=== PATIENT | female | born 1970 | race African-American/Black ===

== ENCOUNTER → 2019-08-02 | Day surgery (SDC) | payer OTHER ==
--- NOTE | 2019-08-03 16:00 | PATH ---
Cytology Non-Gynecological Report Patient Name: ARNIE STOCKTON [facility]. Rec. #: [id number] /Age/Gender: 1970 (Age: 48) / F Account: [id number] Location: RADIOLOGY INTER Taken: 08/02/2019 Received: 08/02/2019 Reported: 08/03/2019 Physicians: Ramy Mendoza M.D. Specimen(s) Received RIGHT THYROID FNA Clinical History Right lobe, 2.23 x 2.61 x 1.91 cm Final Diagnosis THYROID, RIGHT LOBE, FINE NEEDLE ASPIRATION: SATISFACTORY FOR EVALUATION. [place] CLASS II: BENIGN. CYTOLOGIC FINDINGS ARE CONSISTENT WITH A BENIGN FOLLICULAR NODULE. SMALL FOLLICULAR CELLS AND COLLOID PRESENT. Electronically Signed Niharika Hawkins M.D. Gross Description Received are eight direct smears, four of which are air-dried and Diff-Quik stained, and four of which are alcohol fixed and Pap stained. Also received is 20 ml of bloody formalin from which one cellblock is prepared.
== END | disposition home or self-care (01) ==
LOC: JRADIR 08:10
PROVIDERS: ATTEND Internal Medicine
PROC: 0G9K3ZX Drainage of Thyroid Gland, Percutaneous Approach, Diagnostic (ICD-10-PCS; principal; 2019-08-02)
DX: E04.1 Nontoxic single thyroid nodule (principal)
CPT/HCPCS: 76942